=== PATIENT | female | born 1980 | race Caucasian/White ===

== ENCOUNTER 2024-10-30 18:52 | Emergency (ER) | payer OTHER ==
[~2024-10-30] VITALS: Ht 170.2 cm; Wt 81.8 kg
--- NOTE | 2024-10-30 19:38 | RADIOLOGY REPORT ---
CLINICAL INDICATION: HAND PAIN LEFT TECHNIQUE: 8 views of the left hand and wrist. Comparison: None FINDINGS/IMPRESSION: There is no evidence of acute fracture or dislocation. Soft tissues are unremarkable.
--- NOTE | 2024-10-30 21:27 | Physician Documentation ---
History of Present Illness ~ Chief Complaint: Wrist pain Stated Complaint: HAND PAIN Time Seen by MD: 20:11 HPI This is a 44-year-old female that presents to the emergency department for evaluation of left-sided thumb pain after slipping down the stairs and falling back onto her left hand. Reports that thumb started swelling immediately after the injury. Patient denies taking any Tylenol or ibuprofen prior to reporting to the emergency department. Patient denies any other injuries associated with the event. Tetanus within 5 years: No Medication Reconciliation Allergies: Coded Allergies: No Known Allergies (Unverified , 10/30/24) Review of Systems ROS As stated above in the HPI, otherwise all systems are reviewed and negative. Physical Exam Vital Signs: Temperature: 97.8, Heart Rate: 80, Respiratory Rate: 16, BP: 176/89, Pulse Oximetry: 100, Weight: 81.820 Oxygen Flow Rate: 0 Physical Exam VITALS: Reviewed and as above. GENERAL: Alert, no apparent distress. HEENT: Normocephalic, atraumatic, PERRL, EOMI, dry mucosa, no erythema RESPIRATORY: Lungs clear, normal breath sounds, no respiratory distress. CHEST: No accessory muscle use, no retractions CV: Regular rate, rhythm, no edema, no murmur, No: JVD GI: Soft, non-tender, bowels sounds present, no rebound, guarding, or rigidity BACK: No CVA tenderness, or swelling MUSCULOSKELETAL No deformities, to the palmar aspect of the left hand over the thumb range of motion intact although patient reports significant pain with exam. SKIN: Warm and dry, no rash NEURO: Oriented x4, No motor or sensory deficit PSYCH: Normal mood and affect, no agitation Progress Results/Orders Results/Orders Orders - CLEOPATRA SYKES [employer]ILER INSPECTOR Splint Request (10/30/24 ) Vital Signs 10/30/24 19:09 Temp 97.8 Pulse 80 Resp 16 B/P (MAP) 176/89 Pulse Ox 100 O2 Flow Rate 0 Medical Decision Making Findings Patient presents with pain to the dorsal aspect of her left hand primarily over the thumb. Given history, exam and workup patient likely has sprain or soft tissue injury to the left hand or thumb. Can not rule out ligamentous or tendon damage at this time. I have low suspicion for fracture, dislocation, significant ligamentous injury, septic arthritis, gout flare, new autoimmune arthropathy, or gonococcal arthropathy. Can not confirm no ligamentous or tendon damage. We will have patient follow up with her primary care provider for orthopedic referral if symptoms and pain are not improved in the next 7-10 days. Will return to the emergency department if she has any worsening or recurrent symptoms or any additional concerning symptoms that we discussed here today i.e. increased swelling inability to bend the thumb redness heat to the area fevers or any other concerning symptoms. General Diff Dx:Considerations: Include: Abrasion, Contusion, Fracture, Hematoma, Laceration, Malunion, Neurovascular injury, Open fracture, Sprain, Ulcer, Other Departure Disposition: HOME / SELF CARE / HOMELESS Impression: Primary Impression: Wrist joint pain Additional Impressions: Hand pain Thumb pain Edema Condition: Stable Discharge Instructions: Thumb Sprain, Wrist Sprain, Adult Additional Instructions: Patient presents with pain to the dorsal aspect of her left hand primarily over the thumb. Given history, exam and workup patient likely has sprain or soft tissue injury to the left hand or thumb. Can not rule out ligamentous or tendon damage at this time. I have low suspicion for fracture, dislocation, significant ligamentous injury, septic arthritis, gout flare, new autoimmune arthropathy, or gonococcal arthropathy. Can not confirm no ligamentous or tendon damage. We will have patient follow up with her primary care provider for orthopedic referral if symptoms and pain are not improved in the next 7-10 days. Will return to the emergency department if she has any worsening or recurrent symptoms or any additional concerning symptoms that we discussed here today i.e. increased swelling inability to bend the thumb redness heat to the area fevers or any other concerning symptoms. Ice elevate and compress as tolerated. Tylenol ibuprofen as needed for discomfort. Referrals: NO PRIMARY CARE PROVIDER (PCP) Education Educated: Patient Educated regarding: diagnosis, treatment, need for follow up Signature Scribe Signature: A Attestation: Scribed for Cleopatra Sykes by VIKTOR Springer . 10/30/24 21:27 CLEOPATRA SYKES Oct 30, 2024 21:27
[2024-10-30] MEDS: HYDROcodone/acetaminophen 5mg/325mg tablet PO ONE (21:47)
[2024-10-30 21:55] VITALS: BP 124/64; PULSE 78; RESP 18; TEMP 97.5; O2SAT 98
== END 2024-10-30 21:55 | disposition home or self-care (01) ==
LOC: ER 18:54
DX: M79.645 Pain in left finger(s) (principal); R60.9 Edema, unspecified; W10.9XXA Fall (on) (from) unspecified stairs and steps, initial encounter; Y93.89 Activity, other specified; Y92.89 Other specified places as the place of occurrence of the external cause; Y99.8 Other external cause status
CPT/HCPCS: 73110; 73130; 99284

== ENCOUNTER 2025-02-22 14:42 | Emergency (ER) | payer OTHER ==
[~2025-02-22] VITALS: Ht 167.6 cm; Wt 91.0 kg
[2025-02-22 15:05] VITALS: TEMP 97.5
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
--- NOTE | 2025-02-22 16:53 | RADIOLOGY REPORT ---
EXAM: CT CT HEAD INDICATION: injury COMPARISON: None TECHNIQUE: CT of the head without intravenous contrast. Radiation Dose Information: CT Dose: CTDI volume is 57 mGy. Dose-length product is 966 mGy*cm The dose indicators for CT are the volume Computed Tomography (CT) Dose Index (CTDIvol) and the Dose Length Product (DLP), and are measured in units of mGy and mGy-cm, respectively. These indicators are not patient dose, but values generated from the CT scanner acquisition factors. The report includes radiation exposure data for exposures received during this examination. FINDINGS: Scattered hypoattenuation in the periventricular and subcortical white matter, suggestive of chronic microvascular disease. The ventricles and sulci are normal in size and configuration for the patient's age. There is no mass-effect, hemorrhage, midline shift, or abnormal extra-axial fluid collection visible. No calvarial fracture. Essentially clear visualized paranasal sinuses. Mastoid air cells are clear. IMPRESSION: No acute intracranial hemorrhage or mass effect.
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
[2025-02-22 18:31] VITALS: BP 148/68; PULSE 70; RESP 15; O2SAT 99
== END 2025-02-22 18:35 | disposition home or self-care (01) ==
LOC: ER 14:43
DX: S00.83XA Contusion of other part of head, initial encounter (principal); X58.XXXA Exposure to other specified factors, initial encounter; Y93.89 Activity, other specified; Y92.89 Other specified places as the place of occurrence of the external cause; Y99.8 Other external cause status
CPT/HCPCS: 70450; 70486; 99284